=== PATIENT | male | born 1990 | race Caucasian/White ===

== ENCOUNTER 2024-11-09 05:59 | Emergency (ER) | payer SELFPAY | END 2024-11-09 07:45 | disposition home or self-care (01) | LOC: JD.ED 05:59 | DX: J10.1 Influenza due to other identified influenza virus with other respiratory manifestations (principal); Z88.5 Allergy status to narcotic agent; Z79.899 Other long term (current) drug therapy | CPT/HCPCS: 71045; 71045-26; 87428-QW; 99283 ==